=== PATIENT | female | born 1960 | race Two or more races ===

== ENCOUNTER 2020-03-20 17:26 | Emergency (ER) | payer BC ==
[~2020-03-20] VITALS: Ht 154.9 cm; Wt 59.0 kg
--- NOTE | 2020-03-20 17:46 | NUR ---
ASSUME PT CARE. PT BEEN C/O HEADACHE (FRONTAL) INTERMITTENT FOR THE PAST 8 MONTHS WORST W/ STRESS. PT STATES LAST NIGHT SHE HAD A MOMENTARY DIFFICULTY THINKING ABOUT A WORD BUT RESOLVED QUICKLY. PT HAS NO NEURO DEFICIT UPON INITIAL ASSESSMENT. STABLE VITALS. NAD NOTED. AWAITING MD SPEARS.
--- NOTE | 2020-03-20 18:02 | NUR ---
[employer] SYSTEMS ANALYST AT BEDSIDE FOR EVAL.
--- NOTE | 2020-03-20 18:18 | NUR ---
HOME CARE GIVER AT BEDSIDE FOR BLOOD DRAW.
[2020-03-20 18:29] LABS: BASOPHILS # (AUTO) 0.1 /CMM (0.0-0.2); BASOPHILS % (AUTO) 0.6 % (0.0-2.0); EOSINOPHILS % (AUTO) 0.8 % (0.0-6.0); HEMATOCRIT 38 % (33-45); HEMOGLOBIN 12.8 g/dL (11.5-14.8); LYMPHOCYTES # (AUTO) 3.1 /CMM (0.8-4.8); LYMPHOCYTES % (AUTO) 30.5 % (20.0-44.0); MEAN CORPUSCULAR HGB CONC 33 g/dl (31.0-36.0); MEAN CORPUSCULAR VOLUME 88 fL (82-100); MONOCYTES # (AUTO) 0.6 /CMM (0.1-1.30); MONOCYTES % (AUTO) 5.7 % (2.0-12.0); NEUTROPHILS # (AUTO) 6.4 /CMM (1.8-8.9); NEUTROPHILS % (AUTO) 62.4 % (43.0-81.0); PLATELET COUNT (AUTO) 229 /CMM (150-450); RED BLOOD CELL COUNT(AUTO) 4.36 MIL/uL (4.0-5.2); WHITE BLOOD COUNT (AUTO) 10.2 K/uL (4.3-11.0)
--- NOTE | 2020-03-20 18:32 | NUR ---
PT TO RADIOLOGY FOR HEAD CT SCAN VIA [facility].
[2020-03-20 18:46] LABS: ALBUMIN 3.6 g/dL (3.4-5.0); BILIRUBIN,TOTAL 0.3 mg/dL (0.2-1.0); CALCIUM, SERUM 9.5 mg/dL (8.5-10.1); CREATININE 0.7 mg/dL (0.6-1.3); POTASSIUM 3.7 mmol/L (3.5-5.1); TOTAL PROTEIN, SERUM 7.3 g/dL (6.4-8.2)
--- NOTE | 2020-03-20 19:05 | NUR ---
Patient discharged to home in stable condition. Written and verbal after care instructions given. Patient verbalizes understanding of instruction and RX. Pt ambulated with steady gait, vss.
--- NOTE | 2020-03-20 19:43 | NUR ---
Patient discharged to home in stable condition. Written and verbal after care instructions given. Patient verbalizes understanding of instruction.
[2020-03-20 19:44] VITALS: BP 117/79
== END 2020-03-20 19:44 | disposition home or self-care (01) ==
LOC: ER 17:29
DX: R51 Headache (principal); R47.01 Aphasia; R94.31 Abnormal electrocardiogram [ECG] [EKG]; Z98.890 Other specified postprocedural states
CPT/HCPCS: 36415; 70450-TC; 80053-TC; 85025-TC; 85610-TC

== ENCOUNTER 2023-04-30 00:53 | Emergency (ER) | payer BC ==
[~2023-04-30] VITALS: Ht 152.4 cm; Wt 54.4 kg
[2023-04-30 01:39] VITALS: BP 112/80; TEMP 98; O2SAT 94
== END 2023-04-30 01:43 | disposition home or self-care (01) ==
LOC: ER 00:59
DX: H92.01 Otalgia, right ear (principal); R22.0 Localized swelling, mass and lump, head

== ENCOUNTER 2025-03-06 17:38 | Emergency (ER) | payer BC ==
[~2025-03-06] VITALS: Ht 152.4 cm; Wt 56.7 kg
[2025-03-06] MEDS ORDERED: KETOROLAC TROMETHAMINE 15 MG/ML VIAL ONE (18:29)
[2025-03-06] MEDS: KETOROLAC TROMETHAMINE 15 MG/ML VIAL IM ONE (18:30)
[2025-03-06 19:04] LABS: PLATELET COUNT (AUTO) 282 K/uL (150-450); RED BLOOD CELL COUNT(AUTO) 4.62 MIL/uL (4.0-5.2); RED CELL DISTRIBUTION WIDTH 14.0 % (11.5-15.0); WHITE BLOOD COUNT (AUTO) 10.2 K/uL (4.3-11.0)
[2025-03-06 19:16] LABS: CALCIUM, SERUM 9.2 mg/dL (8.5-10.1); CREATININE 0.6 mg/dL (0.6-1.3); SODIUM SERUM 137.0 mmol/L (136-145); UREA NITROGEN, BLOOD 9.0 mg/dL (7-18)
[2025-03-06] MEDS ORDERED: NAPR-1164 PO (19:24)
[2025-03-06 19:32] VITALS: BP 115/70; TEMP 97.9; O2SAT 98
== END 2025-03-06 19:33 | disposition home or self-care (01) ==
LOC: ER 17:43
DX: M79.651 Pain in right thigh (principal); M79.10 Myalgia, unspecified site
CPT/HCPCS: 99284; 96372; 73552; 85025; 80048; 82550; 36415; J1885